=== PATIENT | male | born 1995 | race Hispanic/Latino ===

== ENCOUNTER → 2017-05-26 | Outpatient (CLI) | payer OTHER | LOC: EEVIPCON 14:05 → RAH 14:05 | PROVIDERS: ATTEND Internal Medicine | DX: S69.92XA Unspecified injury of left wrist, hand and finger(s), initial encounter (principal); X58.XXXA Exposure to other specified factors, initial encounter; Y93.89 Activity, other specified; Y92.89 Other specified places as the place of occurrence of the external cause; Y99.8 Other external cause status | CPT/HCPCS: 73110; 73130; 73140 ==